=== PATIENT | male | born 1945 | race Caucasian/White ===

== ENCOUNTER 2020-10-18 06:47 | Day surgery (SDC) | payer MEDICARE, OTHER ==
[~2020-10-18] VITALS: Ht 175.3 cm; Wt 108.9 kg
[~2020-10-18 06:47] MED LIST: ALIR1INJ SC; ASPI-543 PO; ATO40T PO; CHOL50007 PO; CYAN1TAB14 PO; DOXY100C2 PO; FURO40TA4 PO; GABA300C10 PO; GLIP5TAB12 PO; INSLANTI SC; ISOS60TA24 PO; METO100T87 PO; POTA1TAB61 PO; SACU1TAB PO; SITA100T7 PO; TICA90TA PO; TRAM50TA2 PO; TRAZ-181 PO; [UNRECOGNIZED DRUG - CODE] PO
[2020-10-18] MEDS ORDERED: IODIXANOL 320MG/ML 100ML BTL IV ONE (08:36)
[2020-10-18] MEDS ORDERED: LIDOCAINE 2%HCL (LOCAL ANESTH.) INJ 20ML MDV ONE (08:36)
[2020-10-18] MEDS ORDERED: HEPARIN SODIUM (PORCINE) 5000 UNITS/ML 1ML VIAL ONE (09:46)
[2020-10-18] MEDS ORDERED: VERAPAMIL 2.5MG/ML INJ 2ML VIAL IV ONE (09:46)
[2020-10-18] MEDS ORDERED: ANGIOMAX 250 MG VIAL IV ONE (09:46)
[2020-10-18] MEDS ORDERED: fentaNYL CITRATE 100 MCG/2 ML VL ONE (09:46)
[2020-10-18] MEDS ORDERED: SODIUM CHL 0.9% 0 ML ONE (09:47)
[2020-10-18] MEDS ORDERED: MIDAZOLAM HCL 2MG/2ML 2ml VIAL (1mg/ml) ONE (09:47)
== END 2020-10-18 13:10 | disposition home or self-care (01) ==
LOC: CATH 06:47
PROVIDERS: ATTEND Internal Medicine Cardiovascular Disease
DX: R94.39 Abnormal result of other cardiovascular function study (principal); I25.10 Atherosclerotic heart disease of native coronary artery without angina pectoris; E78.5 Hyperlipidemia, unspecified; I25.2 Old myocardial infarction; J98.4 Other disorders of lung; E11.9 Type 2 diabetes mellitus without complications; I11.0 Hypertensive heart disease with heart failure; Z95.5 Presence of coronary angioplasty implant and graft; Z73.9 Problem related to life management difficulty, unspecified; Z87.891 Personal history of nicotine dependence; Z20.822 Contact with and (suspected) exposure to COVID-19; Z79.899 Other long term (current) drug therapy
CPT/HCPCS: 93459; C1769; C1894; J1644; J2250; J3010; J7030; Q9967; U0003; 99152; 99153